=== PATIENT | male | born 1985 | race Caucasian/White ===

== ENCOUNTER 2018-07-28 02:14 | Emergency (ER) | payer OTHER ==
[~2018-07-28] VITALS: Ht 188 cm; Wt 120.2 kg
--- NOTE | 2018-07-28 03:00 | NUR ---
Pt placed to room 04A.
--- NOTE | 2018-07-28 03:15 | NUR ---
Sutures removed by Dr. Wyatt bansal left eyebrow. No s/s of infection.
--- NOTE | 2018-07-28 03:29 | NUR ---
Patient given written and verbal discharge instructions. Patient verbalizes understanding of instructions. Patient is ambulatory with steady gait. Refuses offer of correction placement. Patient given list of available shelters in surrounding area.
[2018-07-28 03:30] VITALS: BP 137/92
== END 2018-07-28 03:32 | disposition home or self-care (01) ==
LOC: ER 02:14
DX: S01.112D Laceration without foreign body of left eyelid and periocular area, subsequent encounter (principal); F22 Delusional disorders; E11.9 Type 2 diabetes mellitus without complications; F17.290 Nicotine dependence, other tobacco product, uncomplicated; Z59.0 Homelessness; X58.XXXD Exposure to other specified factors, subsequent encounter
CPT/HCPCS: A4663

== ENCOUNTER 2018-08-01 21:48 | Emergency (ER) | payer OTHER ==
[~2018-08-01] VITALS: Ht 188 cm; Wt 120.2 kg
[2018-08-01] MEDS ORDERED: MAG HYDROX/AL HYDROX/SIMETH 30 ML LIQUID UDC PO ONE (22:15)
[2018-08-01] MEDS ORDERED: DICYCLOMINE HCL LIQ 10 MG/5 ML UDC PO ONE (22:15)
--- NOTE | 2018-08-01 22:15 | NUR ---
Pt. ambulated into ED w/ c/o upper abdominal / CP x 1 or 2 hours 01/23 severity - pt. does not appear to be in any distress and is laying comforrtably on the bed, pt. is disheveled and states he is homeless and it's [place]'s fault. A/Ox4, denies MACE/F/C/N/V/SOB, RR even and unlabored, bed in low position, all pt. needs met,
[2018-08-01] MEDS ORDERED: MAGNESIUM HYDROXIDE 30 ML LIQUID UDC ONE (22:20)
[2018-08-01] MEDS ORDERED: DICYCLOMINE HCL LIQ 10 MG/5 ML UDC ONE (22:21)
--- NOTE | 2018-08-01 22:28 | NUR ---
Patient eloped from facility. ER physician notified. Pt. spotted outside of building but refused to come inside for treatment, all belongings w/ pt., ambulated down street w/ steady gait,
== END 2018-08-01 22:31 | disposition left against medical advice (07) ==
LOC: ER 21:48
DX: K21.9 Gastro-esophageal reflux disease without esophagitis (principal); E11.9 Type 2 diabetes mellitus without complications; F17.210 Nicotine dependence, cigarettes, uncomplicated; Z59.0 Homelessness
CPT/HCPCS: 93005; A4663